=== PATIENT | female | born 1945 | race Caucasian/White ===

== ENCOUNTER 2020-10-11 08:59 | Day surgery (SDC) | payer MEDICARE ==
[~2020-10-11] VITALS: Ht 160 cm; Wt 76.9 kg
[~2020-10-11 08:59] MED LIST: ACET-1600 PO; DIPH50CA26 PO; EPINEPHRINE 1 MG/ML, 1ML ONE; LIDOCAINE/PF 1%, 30ML ONE; ROPIvacaine/PF 0.5%, 30 ML ONE
[2020-10-11 09:21] VITALS: BP 133/65
[2020-10-11] MEDS ORDERED: CHLORHEXIDINE 15 ML UDC MM ONE (09:30)
[2020-10-11] MEDS ORDERED: LACTATED RINGERS 1,000 ML IV SCH (09:30)
[2020-10-11] MEDS ORDERED: FENTANYL PF 250 MCG/5ML ONE ×2 (09:52→11:14)
[2020-10-11] MEDS ORDERED: ONDANSETRON 2MG/ML, 2ML ONE (09:53)
[2020-10-11] MEDS ORDERED: PROPOFOL 10 MG/ML, 20ML ONE (09:53)
[2020-10-11] MEDS ORDERED: CEFAZOLIN 1,000 MG ONE (09:53)
[2020-10-11] MEDS ORDERED: NAPR220C2 PO (09:57)
[2020-10-11] MEDS ORDERED: LABETALOL 5MG/ML, 20ML IV PRN (11:00)
[2020-10-11] MEDS ORDERED: HALOPERIDOL 5 MG/ML IV PRN (11:00)
[2020-10-11] MEDS ORDERED: ACETAMINOPHEN 325 MG TABLET PO PRN ×2 (11:00→13:00)
[2020-10-11] MEDS ORDERED: PROMETHAZINE 25 MG/ML, 1ML IVPush PRN (11:00)
[2020-10-11] MEDS ORDERED: OXYcodone 5 MG/5 ML ORAL.SOL UDC PO PRN (11:00)
[2020-10-11] MEDS ORDERED: morphine SULFATE 10 MG/ML, 1ML IVPush PRN ×2 (11:00→13:00)
[2020-10-11] MEDS ORDERED: HYDROmorphone 1 MG/ML, 1ML INJ IVPush PRN (11:00)
[2020-10-11] MEDS ORDERED: hydrALAzine 20 MG/ML, 1ML IV PRN (11:00)
[2020-10-11] MEDS ORDERED: MEPERIDINE/PF 25MG/0.5ML IVPush PRN (11:00)
[2020-10-11] MEDS ORDERED: FENTANYL PF 100 MCG/2ML IV PRN (11:00)
[2020-10-11] MEDS ORDERED: PROMETHAZINE 25 MG/ML, 1ML ONE (12:05)
[2020-10-11] MEDS ORDERED: KETOROLAC 30 MG/1 ML ONE (12:44)
[2020-10-11] MEDS ORDERED: PROMETHAZINE 25 MG/ML, 1ML IM PRN (13:00)
[2020-10-11] MEDS ORDERED: OXYcodone/APAP 5/325MG TABLET PO PRN (13:00)
[2020-10-11] MEDS ORDERED: ONDANSETRON 2MG/ML, 2ML IVPush PRN (13:00)
[2020-10-11] MEDS ORDERED: KETOROLAC 30 MG/1 ML IVPush SCH (13:00)
== END 2020-10-11 15:00 | disposition home or self-care (01) ==
LOC: OUT 08:59
PROVIDERS: ATTEND Orthopaedic Surgery
DX: S83.232A Complex tear of medial meniscus, current injury, left knee, initial encounter (principal); M17.12 Unilateral primary osteoarthritis, left knee; M65.862 Other synovitis and tenosynovitis, left lower leg; Z20.828 Contact with and (suspected) exposure to other viral communicable diseases; Z79.899 Other long term (current) drug therapy; Z87.891 Personal history of nicotine dependence; X58.XXXA Exposure to other specified factors, initial encounter; Y93.89 Activity, other specified; Y92.89 Other specified places as the place of occurrence of the external cause; Y99.8 Other external cause status
CPT/HCPCS: 29881; 87635; 93005; J0171; J0690; J1885; J2405; J2550; J2704; J2795; J3010; J7120